=== PATIENT | female | born 1955 | race Caucasian/White ===

== ENCOUNTER 2024-03-20 14:11 | Outpatient (CLI) | payer OTHER, SELFPAY ==
--- OUTSIDE RECORDS SUMMARY | 2024-03-20 14:14 | XMS_ITS | Clinical Summary ---
Author Organization [employer] [facility] Address [place], [place] [address] Care Team Providers Care Student Services Dean Name Role Phone Casie Cruz DO Primary Care Provider Allergies Active Allergy Reactions Criticality Noted Date Comments Venom-Honey Bee Edema High 04/15/2020 Medications Medication Sig Dispensed Refills Start Date End Date Status cholecalciferol (VITAMIN D3) 2,000 unit capsuleIndication s:Health maintenance examination Take 1 capsule by mouth once daily. 0 4 Active acetaminophen (TYLENOL EXTRA STRGTH) 500 mg tabletIndications :S/P three vessel coronary artery bypass,S/P MVR (mitral valve repair) Take 500-1,000 mg by mouth every 6 hours if needed for Pain or Headache. Max acetaminophen dose: 4000mg in 24 hrs. 0 3 Active aspirin chewable 81 mg chewable tabletIndications :S/P three vessel coronary artery bypass,S/P MVR (mitral valve repair) Chew 1 Tablet (81 mg) by mouth once daily with a meal for 30 days. 30 Tablet 3 Active albuterol HFA (PRO-AIR; VENTOLIN; PROVENTIL) 90 mcg/actuation inhalerIndication s:Viral illness,Bronchosp asm Inhale 2 Puffs by mouth every 4 hours if needed for Shortness Of Breath. 18 g 3 Active ascorbic acid, vitamin C, (Vitamin C) 500 mg tablet Take 500 mg by mouth once daily. Active estradioL (ESTRACE) 0.01% (0.1 mg/g) vaginal cream HOLD (do not take) estradiol vaginal cream until cleared by your cardiology and primary care provider it is safe to resume taking. 0 3 Active polyethylene glycol (MIRALAX; GLYCOLAX) 17 g per packet packetIndications :Constipation, unspecified constipation type Mix 8.5-17 g in liquid then take by mouth once daily if needed for Constipation. Pick this up over the counter. 0 3 Active EPINEPHrine (EpiPen 2-Glenn) 0.3 mg/0.3 mL auto-injectorIndi cations:Toxic effect of venom INJECT 0.3 MG INTRAMUSCULAR ONE TIME IF NEEDED (USE DIRECTED ). 2 Each 1 3 Active metoprolol succinate (TOPROL XL) 25 mg Sustained-Release tabletIndications :Primary hypertension Take 0.5 Tablets (12.5 mg) by mouth once daily. 45 Tablet 3 3 Active rosuvastatin (CRESTOR) 10 mg tabletIndications :Primary hypertension,S/P three vessel coronary artery bypass Take 1-2 days per week 24 Tablet 3 4 Active hydrOXYzine HCL (ATARAX) 25 mg tabletIndications :Anxiety Take 0.5-2 Tablets (12.5-50 mg) by mouth at bedtime if needed for Itching. 30 Tablet 4 Active levothyroxine (SYNTHROID) 100 mcg tabletIndications :Hypothyroidism (acquired) TAKE 1 TABLET BY MOUTH EVERY MORNING BEFORE BREAKFAST 90 Tablet 2 4 Active amoxicillin 500 mg capsuleIndication s:Mitral valve insufficiency, unspecified etiology TAKE 4 CAPSULES BY MOUTH, IN A SINGLE DOSE, 30-60 MINUTES BEFORE PROCEDURE. (DOSE = 2,000 MG) FOR SBE PROPHYLAXIS 8 Capsule 4 Active amoxicillin (AMOXIL) 500 mg capsuleIndication s:Mitral valve insufficiency, unspecified etiology Take 4 capsules by mouth, in a single dose, 30-60 minutes before procedure. (Dose = 2,000 mg) For SBE prophylaxis 8 Capsule 1 2 03/12/20 24 Discontinued Active Problems Problem Noted Date Diagnosed Date Osteopenia of multiple sites 09/28/2023 Overview (09/28/2023): DEXA 09/2023 - osteopenia, no increased risk of fracture, repeat in 7-10 years. 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 Debility 09/20/2022 Biventricular heart failure 09/20/2022 Delirium 09/20/2022 Dysphagia 09/20/2022 Dysphonia 09/20/2022 S/P MVR (mitral valve repair) 09/02/2022 Overview (09/02/2022): Medtronic SimuPlus 32 mm Mitral Valve Band - Dr Apple S/P three vessel coronary artery bypass 09/03/19 Overview (09/02/2022): Saphenous vein graft to right coronary artery, saphenous vein graft to LAD, saphenous vein graft to OM - Dr Apple S/P left atrial appendage ligation 09/02/2022 Overview (09/02/2022): Atricure 40 mm Left Atrial Appendage Clip- Dr Apple Primary hypertension 08/17/2022 Symptomatic menopausal or female climacteric sta dora 11/18/2012 Unspecified hypothyroidism 12/21/2006 Mitral valve disorders 12/21/2006 Panic disorder without agoraphobia 12/21/2006 Decreased pulses in feet Encounters Date Type Department Care Team Description 03/11/[address] [facility] [address] [facility] [address] [place] [address] Roya Candelario MD Refill Request (Amoxicillin) 12/28/2023 Orders Only [facility] Scanner 1 scan: (1-Ord) TAREEN DERMATOLOGY, BIOPSY BY SHAVE METHOD, 12/28/2023 from Last 3 Months Immunizations Name Administration Dates Next Due COVID-19 vaccine (Moderna 100mcg/0.5mL) PF MDYesenia 11/25/2021,04/14/2021,07/17/2020,2020 Hepatitis B (Adult) 02/03/2017 Influenza, IIV3 (Age >=3 years) 04/03/2012,03/24 Influenza, IIV4 03/20/2020,07/18/2018,03/03/2017 Influenza, IIV4 (=>6mos) MDV 04/25/2023, 04/24/2022,03/17/2021,2019,03/14/2019 MMR 03/03/2017,02/03/2017 Pneumococcal Conj 20-valent (Prevnar 20) 05/11/2023 Td (Age >=7 Years) 05/27/2004 Td, Preservative Free (age > = 7 Years) 03/06/2007 Tdap 11/24/2018,11/19/2013 Zoster (Shingrix-RZV, recombinant) 12/09/2021, Family History Medical History Relation Name Comments Hypertension Brother 1 Flaco Testicular cancer Brother 1 Flaco Arthritis Brother 2 Adarsh Hypertension Brother 2 Adarsh No Known Problems Brother 3 Wil Arthritis Father Diabetes Father Heart Disease Father Hypertension Father Hypertension Maternal Grandfather Clotting disorder Maternal Grandmother cl ot around her heart? related to PA Hypertension Maternal Grandmother No Known Problems Maternal Uncle 1 No Known Problems Maternal Uncle 2 Dementia Mother Hypertension Mother Other Paternal Aunt B eye disease No Known Problems Paternal Grandfather Stomach cancer Paternal Grandmother Heart Disease Paternal Uncle 1 Heart Disease Paternal Uncle 2 Asthma Sister 1 Khadijah Osteoporosis Sister 1 Khadijah No Known Problems Sister 2 Lety No Known Problems Son 1 Hypertension Son 2 Plantar fasciitis Son 2 Anesthesia Problem No Family History Relation Name Status Comments Brother 1 Flaco Alive Brother 2 Adarsh Alive Brother 3 Wil Alive Father Maternal Grandfather Maternal Grandmother Maternal Uncle 1 Maternal Uncle 2 Mother Paternal Aunt Paternal Grandfather Paternal Grandmother Paternal Uncle 1 Paternal Uncle 2 Sister 1 Khadijah Alive Sister 2 Lety Alive Son 1 Alive Son 2 Alive Social History Tobacco Use Types Packs/Day Years Used Date Smoking Tobacco: Never Passive Smoke Exposure: Past Smokeless Tobacco: Never Tobacco Cessation:Counseling Given: Not Answered Passive Exposure Comments:dad smoked in child stoll life up to age 11 yrs old Alcohol Use Standard Drinks/Week Comments Yes 1 (1 standard drink = 0.6 oz pur e alcohol) PHQ-2 Answer Date Recorded PHQ-2 TOTAL SCORE 1 05/11/2023 Social Connections Answer Date Recorded Frequency of Communication with Friends and Fami ly 0 11/22/2023 Financial Resource Strain Answer Date R ecorded Difficulty of Paying Living Expenses 3 11/22/2023 Difficulty of Paying Living Expenses Not on file 11/22/2023 Food Insecurity Answer Date Recorded Worried About Running Out of Food in the Last Ye ar 1 11/22/2023 Transportation Needs Answer Date Record ed Lack of Transportation (Medical) 1 11/22/2023 Housing Stability Answer Date Recorded Unable to Pay for Housing in the Last Year 1 11/22/2023 Sex and Gender Information Value Date Recorded Sex Assigned at Not on file Gender Identity Not on file Sexual Orientation Not on file Obstetrics History Para Term AB IAB SAB Ectopic Multiple Livin g Live Births 2 2 2 Date Outcome GA Total Labor Labor/2nd/3rd Weight Sex Type Anes PTL Catherine A1 A5 Name Clin Para Para Last Filed Vital Signs Vital Sign Reading Time Taken Comments Blood Pressure 102/72 11/22/2023 10:40 AM CDT Pulse 84 11/22/2023 10:40 AM CDT Temperature 37 ??C (98.6 ??F) 02/12/2023 2:01 PM CDT Respiratory Rate 16 10/12/2023 11:2 6 AM CDT Oxygen Saturation 96% 10/12/2023 11: 26 AM CDT Inhaled Oxygen Concentration - - Weight 57.9 kg (127 lb 11.2 oz) 024 10:40 AM CDT Height 172 cm (5' 7.72) 11/22/2023 10: 40 AM CDT Body Mass Index 19.58 11/22/2023 10:40 AM CDT Plan of Treatment Upcoming Encounters Date Type Department Care Team (Late st Contact Info) Description 05/06/2024 3:40 PM PATIENT RELATIONS SPECIALIST Office Visit [address] [address] Casie Cruz, [address] [address] Health Maintenance Due Date Last Done Comments COVID-19 vaccine series ( season) 2024 05/25/2023, 04/14/2022, 11/25/2021, Additional history exists Influenza for age 65+ 02/04/2024 04/25/2023 , 04/24/2022, 03/17/2021, Additional history exists Depression screening for age 12+ 05/15/2024 05/15/2023, 05/11/2023, 03/02/2023, Additional history exists Mammogram for age 45-75 07/07/2024 07/07/19 24, 04/09/2021, 07/10/2018, Additional history exists BMI (ht and wt on same day) for age 18+ 11/21/2024 11/22/2023, 10/12/2023, 05/11/2023, Additional history exists Fecal testing sDNA-FIT (Cologuard) for age 45-75 11/21/2026 11/22/2023, 09/20/2019 Lipids for age 45-75 05/11/2028 05/11/2023, 11/16/2022, 03/31/2021, Additional history exists Tetanus booster 11/24/2028 11/24/2018, 11/03, 03/06/2007, Additional history exists Hepatitis C screening for ag e 18-79 Completed 10/09/2007, 04/03/2007, 02/17/2006, Additional history exists Fecal testing non-DNA (FIT,FOBT,iFOBT) for age 45-75 Discontinued 12/15/2011 Tdap Completed 11/24/2018, 11/03, 11/19/2013 Zoster (shingles) series for age 50+ Completed 12/09/2021, 10/06/2021 Pneumococcal series for age 65+ Completed DEXA/DXA scan for age 65+ Completed 09/25/2023 Medical Devices Implanted Type Area Instrument Maintenance Supervisor Device Identifier Shelf Expiration Date Model / Serial / Lot Band Mitral 32mm Simuplus - [id number] Implanted:Qty: 1 on 09/01/2022 by Baljit Elliott MD at [facility] N/A: Mitral Valve Medtronic Cardiac Surgery 04/18/2027 [id number] / [id number] / [id number] Description:Implanted in [place] ral Valve Annulus Occluder Erendira 40mm Atriclip Flex V Exclusion Sys - [id number] Implanted:Qty: 1 on 09/01/2022 by Baljit Elliott MD at [facility] N/A: [employer] 06/05/2025 [id number] / [id number] Description:Implanted on Lef t Atrial Appendage. Procedures Procedure Name Priority Date/Time Associated Diagnosis Comments SCAN-OPERATIVE/PRO CEDURE REPORT 12/28/2023 12:00 AM CDT SDNA-FIT EXTERNAL (COLOGUARD) Routine 11/22/2023 8:30 AM CDT Screening for colorectal cancer XR DXA BONE DENSITY 2 SITES AXIAL Routine 09/25/2023 2:51 PM CDT Asymptomatic postmenopausal state Other specified hypothyroidism XR MAMMO BILAT SCREENING Routine 07/07/2023 11:01 AM PATIENT RELATIONS SPECIALIST Visit for screening mammogram LIPID PANEL W REFLEX MEASURED LDL Routine 05/11/2023 10:54 AM PATIENT RELATIONS SPECIALIST Primary hypertension S/P three vessel coronary artery bypass OCCULT BLOOD IFOBT STOOL Routine 12/15/2011 2:25 PM CDT Health maintenance examination ANTI HCV Routine 10/09/2007 10:20 AM CDT Laceration Of Finger from Last 3 Months or Most Recently Relevant to Health Maintenance Results * SCAN-OPERATIVE/PROCEDURE REPORT (12/28/2023 12:00 AM CDT) Scanner OTHER * SDNA-FIT EXTERNAL (COLOGUARD) [[id number]] (11/22/2023 8:30 AM CDT) NONINV COLON CA DNA+OCC BLD SCRN STL-IMP Negative Negative 11/29/2023 8:37 AM CDT [facility] (CLIA #:[id number]) Comment: NEGATIVE TEST RESULT. A negative Cologuard result indicates a low likelihood that a colorectal cancer (CRC) or advanced adenoma (adenomatous polyps with more advanced pre-malignant features) ??is present. The chance that a person with a negative Cologuard test has a colorectal cancer is less than 1 in 1500 (negative predictive value >99.9%) or has an ??advanced adenoma is less than ??5.3% (negative predictive value 94.7%). These data are based on a prospective cross-sectional study of 10,000 individuals at average risk for colorectal cancer who were screened with both Cologuard and colonoscopy. (Halie Soria. jayde al, N Engl J Med 2014;370(14):1286- 1297) The normal value (reference range) for this assay is negative. COLOGUARD RE-SCREENING RECOMMENDATION: Periodic colorectal cancer screening is an important part of preventive healthcare for asymptomatic individuals at average risk for colorectal cancer. ??Following a negative Cologuard result, the [place] [employer] Society and U.S. Multi-Society Task Force screening guidelines recommend a Cologuard re-screening interval of 3 years. References: [place] [employer] Guideline for Colorectal Cancer Screening: https://www.cancer.org/cancer/tneky-lxjbfk-cqylkx/ocdviyzok-kvhsqevix-iciadja/ac s-rec ommendations.html.; Kenton PARKS, Cuate MCKEON, Estiven MontoyaK, Colorectal Cancer Screening: Recommendations for Physicians and Patients from the U.S. Multi-Society Task Force on Colorectal Cancer Screening , Am J Gastroenterology 2017; 112:5976-5466. TEST DESCRIPTION: Composite algorithmic analysis of stool DNA-biomarkers with hemoglobin immunoassay. ?? Quantitative values of individual biomarkers are not reportable and are not associated with individual biomarker result reference ranges. Cologuard is intended for colorectal cancer screening of adults of either sex, 45 years or older, who are at average-risk for colorectal cancer (CRC). Cologuard has been approved for use by the U.S. FDA. The performance of Cologuard was established in a cross sectional study of average-risk adults aged 50-84. Cologuard performance in patients ages 45 to 49 years was estimated by sub-group analysis of near-age groups. Colonoscopies performed for a positive result may find as the most clinically significant lesion: colorectal cancer [4.0%], advanced adenoma (including sessile serrated polyps greater than or equal to 1cm diameter) [20%] or non- advanced adenoma [31%]; or no colorectal neoplasia [45%]. These estimates are derived from a prospective cross-sectional screening study of 10,000 individuals at average risk for colorectal cancer who were screened with both Cologuard and colonoscopy. (Halie Concepcion, N Engl J Med 2014;370(14):2362-9310.) Cologuard may produce a false negative or false positive result (no colorectal cancer or precancerous polyp present at colonoscopy follow up). A negative Cologuard test result does not guarantee the absence of CRC or advanced adenoma (pre-cancer). The current Cologuard screening interval is every 3 years. ([place] Cancer Society and U.S. Multi-Society Task Force). Cologuard performance data in a 10,000 patient pivotal study using colonoscopy as the reference method can be accessed at the following location: www.Movatu/results. Additional description of the Cologuard test process, warnings and precautions can be found at www.cologNewsvinerd.com. Stool specimen (specimen) (Rectum) 11/22/2023 8:30 AM CDT 11/23/2023 1:51 PM CDT Casie Cruz DO URINE [facility] (CLIA #:[id number]) [place] [address], * XR DXA BONE DENSITY 2 SITES AXIAL (09/25/2023 2:51 PM CDT) Anatomical Region Laterality Modality Spine, HIPS, HIPL, HIPR Computed Radiography Impressions 09/27/2023 12:29 PM CDT Osteopenia. RECOMMENDATIONS: ??The National Osteoporosis Foundation recommends pharmacologic treatment for patients with T-scores of -2.5 or less, patients with prior history of fragility fractures, or patients with 10-year probability of greater than 3% at hips or greater than 20% of suffering major osteoporotic fractures. Recommend continued optimization of calcium and vitamin D intake through dietary means and/or supplementation and regular exercise. CHRISTIN SIMS M.D. [email or web address] Narrative 09/27/2023 12:29 PM CDT For Patients: Results are automatically released to your [employer] account once available, in compliance with federal regulations. This means that you may see your results before your provider has had a chance to review them. Please allow 2-3 business days for your provider to comment on the results. XR DXA Bone Mineral Density (BMD) EXAM LOCATION: [address] [address] PATIENT NAME: Chey Rivera DATE OF : 1955 EXAM DATE: 09/25/2023 REQUESTING PROVIDER: Casie Cruz, GENDER AT : female HEIGHT: 68 inches WEIGHT: 129 pounds MENOPAUSAL STATUS: Postmenopausal ?? RACE/ETHNICITY: White ?? RISK FACTORS: Family History of Osteoporosis, White Race, and estrogen therapies CURRENT MEDICATION FOR BONE LOSS: NONE INDICATION: Asymptomatic postmenopausal state COMPARISON DATE(S): None DXA scans are compared to prior studies for a patient only when the two (or more) studies were performed on the same scanner. It is not possible to compare data generated on one scanner to data from another because there are not standards in DXA equipment. This applies even if the two scanners are made by the same financial institution president. PROCEDURE: Dual-energy x-ray absorptiometry performed with routine technique. Reporting is completed in the form of a T-score. The T-score represents the standard deviation from peak bone mass based on young healthy adult. A Z-score is used for diagnosis in premenopausal women, and for men under the age of 50. FINDINGS: RESULT LUMBAR SPINE L1 - L4 BMD: 1.127 g/cm2 T-Score: - 0.4 Z-Score: + 1.4 RESULTS FEMUR Left femoral neck BMD: 0.916 g/cm2 T-Score: - 0.9 Z-Score: + 0.8 Right femoral neck BMD: 0.924 g/cm2 T-Score: - 0.8 Z-Score: + 0.8 Left total hip BMD: 0.839 g/cm2 T-Score: - 1.3 Z-Score: + 0.1 Right total hip BMD: 0.849 g/cm2 T-Score: - 1.3 Z-Score: + 0.1 WHO criteria: Normal: T-score at or above -1 SD Osteopenia: T-score between -1.1 and -2.4 SD Osteoporosis: T-score at or below -2.5 SD LEFT: FRAX RISK CALCULATION (USED FOR OSTEOPENIA ONLY): 10-year probability of major osteoporotic fracture: 6.8%. 10-year probability of hip fracture: 0.5%. Casie Cruz DO DEXA * XR MAMMO BILAT SCREENING (07/07/2023 11:01 AM PATIENT RELATIONS SPECIALIST) Anatomical Region Laterality Modality BREASTS, Breast Left, Breast Right Bilateral Mammography Impressions 07/10/2023 6:51 AM PATIENT RELATIONS SPECIALIST ??There is no radiographic evidence for malignancy. ??Recommend annual mammograms. MAMMOGRAM ASSESSMENT: ??ACR 1 Negative PATIENTS: You will also receive a letter with your examination results in an easy to read format. ??If you have questions about your results, please contact your referring provider. Narrative 07/10/2023 6:51 AM PATIENT RELATIONS SPECIALIST For Patients: As a result of the Cures Act, medical imaging exams and procedure reports are released immediately into your electronic medical record. You may view this report before your referring provider. If you have questions, please contact your health care provider. XR MAMMO BILAT SCREENING [[id number]] CLINICAL HISTORY: ??This is an asymptomatic 67 y.o. patient. INDICATION FOR EXAM: Mammogram Screening. TECHNIQUE: CC & MLO views were obtained. ??This study was evaluated with the assistance of Computer-Aided Detection. COMPARISON FILM: Yes 04/09/21 [employer] ?? FINDINGS: ??The breasts have scattered areas of fibroglandular density. There are no dominant masses, suspicious micro calcifications or areas of architectural distortion. Casie Cruz DO MAMMO * (ABNORMAL) LIPID PANEL W REFLEX MEASURED LDL (05/11/2023 10:54 AM PATIENT RELATIONS SPECIALIST) CHOLESTEROL,TOTAL 260(H) 100 - 199 mg/dL 05/11/2023 11:42 AM [facility] Comment: Cholesterol, Total Reference Ranges Desirable <200 mg/dL Borderline 200-239 mg/dL High >=240 mg/dL TRIGLYCERIDES 76 <150 mg/dL 05/11/2023 11:42 AM [facility] HDL CHOLESTEROL 93 >40 mg/dL 11:42 AM [facility] NON-HDL CHOLESTEROL 167(H) <145 mg/dl 05/11/2023 11:42 AM [facility] CHOL/HDL RATIO 2.80 <4.50 05/11/2023 11:42 AM [facility] LDL CHOLESTEROL 152(H) <=130 mg/dL 05/11/2023 11:42 AM [facility] VLDL CHOLESTEROL 15 <=30 mg/dL 05/11/2023 11:42 AM [facility] PROVIDER ORDERED STATUS RANDOM 05/11/2023 11:42 AM [facility] Blood BLOOD SPECIMEN / Unknown Venipuncture / Unknown 05/11/2023 10:54 AM PATIENT RELATIONS SPECIALIST 05/11/2023 10:54 AM PATIENT RELATIONS SPECIALIST Casie Cruz DO CHEMISTRY [facility] [address] [place] [address] * OCCULT BLOOD IFOBT STOOL (12/15/2011 2:25 PM CDT) STOOL BLOOD ,IFOBT Negative (Negative) [facility] Stool specimen (specimen) STOOL SPECIMEN / Unknown 12/15/2011 2:25 PM CDT 12/15/2011 2:23 PM CDT Christopher Cooper MD LABORATORY [facility] [address] [place] [address] * ANTI HCV (10/09/2007 10:20 AM CDT) ANTI HCV Non-reacti ve [facility] Blood specimen (specimen) BLOOD SPECIMEN / Unknown 10/09/2007 10:20 AM CDT 10/09/2007 10:09 AM CDT Yuki Solomon MD SEND OUTS [facility] INTERNAL ZIP [id number] [address] from Last 3 Months or Most Recently Relevant to Health Maintenance Advance Directives Documents on File Type Date Recorded 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 Healthcare Directive 08/31/2022 11:06 AM Healthcare Directive 07/25/2022 023 * Full Code (Latest Code Status on File) Date Activated Date Inactivated Comments 10/15/2022 5:18 PM 10/17/2022 7:06 PM Question Answer Comments Code Status Discussion: Reviewed Preferences * Full Code Date Activated Date Inactivated Comments 09/20/2022 1:23 PM 2022 1:11 PM Question Answer Comments Code Status Discussion: Reviewed Preferences * Full Code Date Activated Date Inactivated Comments 09/01/2022 10:38 PM 09/20/2022 1:15 PM Question Answer Comments Code Status Discussion: Reviewed Preferences * Full Code Date Activated Date Inactivated Comments 09/01/2022 10:01 AM 09/01/2022 10:37 PM Question Answer Comments Code Status Discussion: Not Discussed * Full Code Date Activated Date Inactivated Comments 06/07/2022 12:33 PM 06/07/2022 4:43 PM Question Answer Comments Code Status Discussion: Unable to Assess Preferences, Provider to review later Care Teams Student Services Dean Relationship Specialty Start Date End Date Casie Cruz DO [address] [place] [address] PCP - General Internal Medicine 10/19/22
[2024-03-22 22:14] LABS: HPV Source Cervix; HPV, High Risk by TMA Not Detected
[2024-04-05 14:21] LABS: Pap Test Reviewed by Path Done
== END 2024-03-20 14:12 | disposition home or self-care (01) ==
PROVIDERS: Visit Provider Advanced Practice Midwife
DX: N89.8 Other specified noninflammatory disorders of vagina (principal); Z12.4 Encounter for screening for malignant neoplasm of cervix
CPT/HCPCS: 87086; 87624; 87625; 88141; 88142